=== PATIENT | male | born 1955 | race Caucasian/White ===

== ENCOUNTER 2017-10-28 09:30 | Observation (INO) ==
--- NOTE | 2017-10-28 09:48 | Emergency Department Note ---
ED Disposition Clinical Impression: Colitis, Hyperglycemia Intractable vomiting Qualifiers: Vomiting type: unspecified Nausea presence: with nausea Qualified Code(s): R11.2 - Nausea with vomiting, unspecified Disposition: Still a Patient Condition on Discharge: Fair Referrals: Rudy Bernard MD [Primary Care Provider] - - Critical Care Critical Care Time: No Attestation: On , the high probability of a clinically significant, sudden or life threatening deterioration of the following system(s) required my full and direct attention, intervention and personal management. The time I documented below is in addition to time spent performing reported procedures but includes the following listed in this critical care notation. Medical Decision Making - Darryl Inquiry Pt receiving controlled substance: No Vital Signs: 10/28/17 09:31 10/28/17 11:01 Temperature 97.5 F L Temperature Source Oral Pulse Rate [Right Radial] 88 91 H Respiratory Rate 22 20 Blood Pressure [Right Arm] 163/99 147/85 Blood Pressure Mean [Right Arm] 120 105 Blood Pressure Source [Right Arm] Automatic Cuff Automatic Cuff Blood Pressure Position [Right Arm] Sitting Sitting 02 Sat by Pulse Oximetry 94 L 93 L Oxygen Delivery Method Room Air Room Air - Lab Data Lab Results 10/28/17 09:55: Urine Color Dk yellow, Urine Appearance Sl cloudy, Urine pH 6.0 , Ur Specific [place] >= 1.030, Urine Protein 2+, Urine Glucose (UA) 2+, Urine Ketones 1+, Urine Blood Negative, Urine Nitrate Negative, Urine Bilirubin Negative, Urine Urobilinogen 0.2, Ur Leukocyte Esterase Negative, Urine RBC Occasional, Urine WBC None, Ur Squamous Epith Cells 5-10, Urine Bacteria 1+, Urine Mucus 4+ 10/28/17 09:55: WBC 16.8 H, RBC 5.85, Hgb 16.6, Hct 52.4 H, MCV 89.5, MCH 28.3, MCHC 31.6 L, RDW 13.4, Plt Count 266, MPV 9.0, Neut % (Auto) 84.4 H, Lymph % ( Auto) 10.9, [place] % (Auto) 3.8, Eos % (Auto) 0.7, Baso % (Auto) 0.3, Neut # (Auto ) 14.1 H, Lymph # (Auto) 1.8, [place] # (Auto) 0.6, Eos # (Auto) 0.1, Baso # (Auto ) 0.1, Total Counted 100, Neutrophils % (Manual) 80 H, Lymphocytes % (Manual) 13 , Atypical Lymphs % 2.0, Monocytes % (Manual) 5, Platelet Estimate Normal, RBC Morphology Normal 10/28/17 09:55: Sodium 137, Potassium 3.6, Chloride 103, Carbon Dioxide 26, Anion Gap 11.6, BUN 7, Creatinine 0.96, Estimated Creat Clear 136, Estimated GFR 80, Est GFR ( Amer) 97, Glucose 301 H, Calcium 8.7, Total Bilirubin 0.6, AST 7 L, ALT 17, Alkaline Phosphatase 91, Troponin I < 0.02, Total Protein 7.5, Albumin 3.3 L, Globulin 4.2 H, Albumin/Globulin Ratio 0.8 L, Amylase 32, Lipase 99 10/28/17 09:55: Hemoglobin A1c 10.3 H Patient was noted to have elevated blood sugar in the 300s on prior admission 2014. Hemoglobin A1c was 10. He states that since then his blood sugar has been fine when checked in the office. States he has not diagnosed with diabetes. Result diagrams: 10/28/17 09:55 10/28/17 09:55 Orders (Tests/Meds): ED MEDICATIONS Discontinued Medications Generic Name Dose Route Start Last Admin Trade Name Freq PRN Reason Stop Dose Admin Sodium Chloride 1,000 mls @ 999 mls/hr 10/28/17 09:45 10/28/17 09:49 Sod Chlor 0.9% 1000ml Bag IV 10/28/17 10:45 999 mls/hr .Q1H1M JEN Administration Ondansetron HCl 4 mg 10/28/17 09:47 10/28/17 09:50 Zofran 4mg/2ml Vial IV 10/28/17 09:48 4 mg ONCE ONE Administration Prochlorperazine Edisylate 5 mg 10/28/17 11:18 10/28/17 11:20 Compazine 10mg/2ml Vial IV 10/28/17 11:19 5 mg ONCE ONE Administration Promethazine HCl 12.5 mg 10/28/17 10:13 10/28/17 10:18 Phenergan 25mg/Ml 1ml Vial IV 10/28/17 10:14 12.5 mg ONCE ONE Administration Sodium Chloride 25 ml 10/28/17 10:13 10/28/17 10:18 Sod Chlor 0.9% 25ml Bag IV 10/28/17 10:14 25 ml ONCE ONE Administration ORDERS Category Date Time Status Diarrhea Panel, PCR Stat Lab 10/28/17 09:55 Received - CT Data CT Scan: Abdomen, Pelvis Time Received: 11:[address] Reviewed: Yes: I have viewed the radiologist's interpretation Findings Narrative: Diffuse colitis. Diffuse nature suggests infectious or inflammatory process and argues against ischemia. Pseudomembranous colitis is considered. No pneumatosis or free air. Diverticulosis. Nonobstructing right nephrolithiasis. - ECG Data Tracing #1 EKG interpreted by Prasanna Hernandez MD: Rhythm: sinus Rate: 89 [place]: normal Ectopy: none Conduction: normal ST Segment Changes: none T Wave Changes: none Q Waves: none No evidence of acute ischemia or injury - Physician Consults Physician Consulted: Marco Antonio Time: 11:23 Reason -: Admission Comment/Response: Agrees to admit the patient to the hospital. We discussed the patient's clinical information, including history, exam, laboratory and radiology results and ED course. Per hospital procedure, I will write temporary bridge inpatient orders on the patient. Specific orders requested by the admitting physician: IV fluids, anti-emetics, hold off on antibiotics until diarrhea panel result. - Reevaluation(s) Time: 11:18 Reevaluation #1: Still vomiting after Zofran and Phenergan. General Adult HPI - General Chief complaint: Nausea/Vomiting/Diarrhea Stated complaint: Diarrhea Time Seen by Provider: 10/28/17 09:48 Mode of Arrival: Wheelchair Limitations: No Limitations Description of Symptoms (Recalled from ER Triage Doc. by RN): Patient states he has had diarrhea for four days, starting vomiting last night. States he hasn't ate anything for the four days and that he became weak in the lobby and lowered himself to the ground. Denies falling or hitting his head. - History of Present Illness HPI narrative: 4 day history of diarrhea followed by vomiting. He is not sure whether he has had blood in the diarrhea. He thinks he developed a fever this morning. He has generalized abdominal pain, but states he is more bothered by the severe nausea. He says that he ate at [employer] either the day this started or the prior day. He says the food tasted funny, he thinks that is the cause. No recent travel. - Related Data Home Medications Medication Instructions Recorded Confirmed Amlodipine Besylate [Amlodipine 10 mg PO DAILY 10/28/17 10/28/17 10mg Tab] Losartan Potassium 25 mg PO DAILY 10/28/17 10/28/17 Allergies Allergy/AdvReac Type Severity Reaction Status Date / Time From [facility]AN Allergy Unknown LIGHTHEADED Uncoded 04/05/17 14:08 [facility] History I have reviewed the patient's past medical history: Yes Medical History: Denies:: Diabetes Mellitus Type 2 Laterality Cases: Bilateral: Tonsillectomy - Social History Smoking Status: Current every day smoker Tobacco Type: cigarettes Alcohol Intake: never - Psychiatric History Expresses thoughts of harming self/others: None Suicide Plan Description: No Plan ROS Obtained: Yes All systems reviewed & no additional complaints - Constitutional Constitutional: Reports fever(s) - Cardiovascular Cardiovascular: Denies chest pain - Gastrointestinal Gastrointestingal: Reports: abdominal pain, diarrhea, vomiting Physical Exam - General General appearance: alert Comment: very nauseated - Head Head exam: atraumatic, normocephalic, normal inspection - Eye Eye exam: Present: normal appearance, PERRL, EOMI - ENT ENT exam: Present: normal exam, normal oropharynx, mucous membranes moist, TM's normal bilaterally, normal external ear exam - Neck Neck exam: Present: normal inspection, full ROM, trachea midline. Absent: meningismus, lymphadenopathy - Chest Chest inspection: Present: normal inspection, symmetric chest wall rise. Absent : tenderness - Respiratory Respiratory exam: Present: normal lung sounds bilaterally. Absent: respiratory distress - Cardiovascular Cardiovascular exam: Present: regular rate, normal rhythm. Absent: JVD - Abdominal Exam Abdominal exam: Present: soft, tenderness, normal bowel sounds. Absent: distention, guarding Abdominal tenderness: Present: diffuse, mild - Extremities Exam Extremities exam: Present: normal inspection, full ROM, normal capillary refill. Absent: calf tenderness - Back Exam Back exam: Present: normal inspection. Absent: tenderness - Neurological Exam Neurological exam: Present: alert, oriented X3 - Psychiatric Psychiatric exam: Present: normal affect, normal mood - Skin Skin exam: Present: warm, dry, intact, normal color - Lymphatic Lymphatic Findings: no adenopathy
[2017-10-28 10:06] LABS: Microscopic, Urine URINE MICROSCOPIC (MICROSCOPIC)
[2017-10-28 10:08] LABS: Basophils # 0.1 K/mm3 (0-0.2); Basophils % 0.3 % (0.1-2.0); Eosinophils # 0.1 K/mm3 (0.0-0.4); Eosinophils % 0.7 % (0.1-12.0); Hematocrit 52.4 % (42.0-52.0); Hemoglobin 16.6 g/dL (14.1-18.0); Lymphocytes # 1.8 K/mm3 (0.7-4.5); Lymphocytes % 10.9 K/mm3 (10-50); Mean Corpuscular HGB Conc 31.6 g/dL (31.8-35.4); Mean Corpuscular Hemoglobin 28.3 pg (27.0-31.2); Mean Corpuscular Volume 89.5 fl (80-94); Monocytes # 0.6 K/mm3 (0.1-1.0); Monocytes % 3.8 % (1.7-9.3); Neutrophils # 14.1 K/mm3 (1.8-7.8); Neutrophils % 84.4 % (37.0-80.0); Platelet Count 266 K/mm3 (142-424); Red Blood Count 5.85 M/mm3 (4.60-6.20); Red Cell Distribution Width 13.4 % (11.5-17.5); White Blood Count 16.8 K/mm3 (4.8-10.8)
[2017-10-28 10:16] LABS: Appearance,Urine SL CLOUDY (Clear); Blood, Urine Negative (Negative); Color,Urine DK YELLOW (Yellow); Glucose,Urine (UA) 2+ (Negative); Ketones,Urine 1+ (Negative); Leukocyte Esterase,Urine Negative (Negative); Protein,Urine 2+ (Negative); Specific Gravity, Urine >= 1.030 (1.005-1.030); Urobilinogen,Urine 0.2 EU/dl (0.2)
[2017-10-28 10:22] LABS: Alanine Aminotransferase 17 U/L (12-78); Albumin Level 3.3 gm/dL (3.4-5.0); Albumin/Globulin Ratio 0.8 (1.1-1.8); Alkaline Phosphatase 91 U/L (46-116); Amylase 32 U/L (25-125); Anion Gap 11.6 mEq/L (5-15); Aspartate Amino Transferase 7 U/L (15-37); Bilirubin,Total 0.6 mg/dL (0.2-1.0); Blood Urea Nitrogen 7 mg/dL (7-18); Calcium 8.7 mg/dL (8.5-10.1); Carbon Dioxide 26 mmol/L (21.0-32.0); Chloride 103 mmol/L (98-107); Globulin 4.2 gm/dl (1.3-3.2); Glucose 301 mg/dL (74-106); Lipase 99 u/L (73-393); Potassium 3.6 mmoL/L (3.5-5.1); Sodium 137 mmol/L (136-145); Total Protein,Serum 7.5 gm/dL (6.4-8.2)
[2017-10-28 10:24] LABS: Bilirubin,Urine Negative (Negative)
[2017-10-28 10:27] LABS: Bacteria,Urine 1+ /lpf; Mucus,Urine 4+ /lpf; RBC,Urine Occasional #/hpf (0-3)
[2017-10-28 10:28] LABS: Lymphocytes % 13 % (10-50); Monocytes % 5 % (2-9); Neutrophils % 80 % (42-76); Total Cells Counted 100
[2017-10-28 10:29] LABS: RBC Morphology Normal
--- NOTE | 2017-10-28 12:20 | Pharmacy Consult Notes ---
[facility] VTE Monitoring - Patient Demographics Admission date: 10/28/17 Report Date: 10/28/17 Time: 12:20 Allergies/Adverse Reactions: Patient Allergies From DIOVAN Allergy (Unknown, Uncoded 04/05/17 14:08) LIGHTHEADED Height: 1.83 m Weight: 117.934 kg Patient Problems: Current Active Problems Colitis (Acute) Intractable vomiting (Acute) Hyperglycemia (Acute) - VTE Risk Labs: VTE Related Lab Results Hgb 16.6 g/dL (14.1-18.0) 10/28/17 09:55 Hct 52.4 % (42.0-52.0) H 10/28/17 09:55 Plt Count 266 K/mm3 (142-424) 10/28/17 09:55 BUN 7 mg/dL (7-18) 10/28/17 09:55 Creatinine 0.96 mg/dL (0.70-1.30) 10/28/17 09:55 Estimated Creat Clear 136 mL/min (0-300) 10/28/17 09:55 - Prophylaxis VTE Prophylaxis Ordered?: Yes Types of VTE Prophylaxis: TEDS Knee High Location of Applied Device: Bilateral Lower Extremeties - VTE Diagnosis Confirmed Treatment or plan recommended: Continue Current Treatment
--- NOTE | 2017-10-28 16:28 | History & Physical Report ---
*Admission Date: 10/28/17 *Chief complaint: Vomiting and diarrhea *History of present illness: 62-year-old male with history of hypertension and diabetes presented to the emergency department with a 3 day history of vomiting, diarrhea, abdominal pain that seemed to worsen early this morning. He had developed fevers this morning as well. He reports eating some bad tasting fish at a fast food restaurant and symptoms starting soon after his dining experience. Denies hematemesis, melena , hematochezia. In the emergency department despite being given multiple antiemetics he continued to vomit. Patient has been admitted for observation and stone IV fluids. He finally seemed to respond to some Compazine intravenously [facility] History I have reviewed the patient's past medical history: Yes Medical History: Reports:: Diabetes Mellitus Type 2, Hypertension Denies:: Cancer, MRSA Laterality Cases: Bilateral: Tonsillectomy Amputation: No - *Social History Educational Level: Completed College Smoking Status: Current every day smoker Tobacco Type: cigarettes # Packs/Day (cigarettes): 2 Alcohol Intake: current Alcohol Intake Frequency:: holidays/special occasions only Occupational Status: employed Housing: house Household Members: spouse - Psychiatric History Expresses thoughts of harming self/others: None Suicide Plan Description: No Plan *Family Hx:: Unable to obtain Review of Systems - Review of Systems Review of systems:: pertinent systems reviewed and negative unless documented below See HPI - *Cardiovascular Denies chest pain - *Respiratory Denies shortness of breath Meds Home Medications Medication Instructions Recorded Confirmed Type Amlodipine Besylate [Amlodipine 10 mg PO DAILY 10/28/17 10/28/17 History 10mg Tab] Losartan Potassium 25 mg PO DAILY 10/28/17 10/28/17 History Allergies Allergy/AdvReac Type Severity Reaction Status Date / Time From DIOVAN Allergy Unknown LIGHTHEADED Uncoded 04/05/17 14:08 Exam Vital signs and Labs for Last 24 Hours: Temp Pulse Resp BP Pulse Ox 98.2 F 97 H 18 123/70 96 10/28/17 16:00 10/28/17 16:00 10/28/17 16:00 10/28/17 16:00 10/28/17 16:00 Laboratory Results - last 24 hr 10/28/17 09:55: Urine Color Dk yellow, Urine Appearance Sl cloudy, Urine pH 6.0 , Ur Specific [place] >= 1.030, Urine Protein 2+, Urine Glucose (UA) 2+, Urine Ketones 1+, Urine Blood Negative, Urine Nitrate Negative, Urine Bilirubin Negative, Urine Urobilinogen 0.2, Ur Leukocyte Esterase Negative, Urine RBC Occasional, Urine WBC None, Ur Squamous Epith Cells 5-10, Urine Bacteria 1+, Urine Mucus 4+ 10/28/17 09:55: WBC 16.8 H, RBC 5.85, Hgb 16.6, Hct 52.4 H, MCV 89.5, MCH 28.3, MCHC 31.6 L, RDW 13.4, Plt Count 266, MPV 9.0, Neut % (Auto) 84.4 H, Lymph % ( Auto) 10.9, [place] % (Auto) 3.8, Eos % (Auto) 0.7, Baso % (Auto) 0.3, Neut # (Auto ) 14.1 H, Lymph # (Auto) 1.8, [place] # (Auto) 0.6, Eos # (Auto) 0.1, Baso # (Auto ) 0.1, Total Counted 100, Neutrophils % (Manual) 80 H, Lymphocytes % (Manual) 13 , Atypical Lymphs % 2.0, Monocytes % (Manual) 5, Platelet Estimate Normal, RBC Morphology Normal 10/28/17 09:55: Sodium 137, Potassium 3.6, Chloride 103, Carbon Dioxide 26, Anion Gap 11.6, BUN 7, Creatinine 0.96, Estimated Creat Clear 136, Estimated GFR 80, Est GFR ( Amer) 97, Glucose 301 H, Calcium 8.7, Total Bilirubin 0.6, AST 7 L, ALT 17, Alkaline Phosphatase 91, Troponin I < 0.02, Total Protein 7.5, Albumin 3.3 L, Globulin 4.2 H, Albumin/Globulin Ratio 0.8 L, Amylase 32, Lipase 99 10/28/17 09:55: Stl Aeromonas (PCR) Not detected, Stl C. cayetanensis PCR Not detected, Stool Rotavirus (PCR) Not detected, Stl Adenov F 40/41 PCR Not detected, Stool Astrovirus (PCR) Not detected, Stool Campylobacter PCR Not detected, Stl C.difficile Tox PCR Not detected, Stool Cryptosporidium PCR Not detected, Stl E.coli Shiga Tox PCR Detected A, Stool E coli O157 PCR Not detected, Stl Enterotoxigenic E PCR Not detected, Stool EPEC (PCR) Not detected , Stool EAEC (PCR) Not detected, Stl E. histolytica PCR Not detected, Stool Giardia Lamblia PCR Not detected, Stool Salmonella PCR Not detected, Stool Sapovirus (PCR) Not detected, Stl P. shigelloides PCR Not detected, Stl Shigella /EIEC PCR Not detected, St Y.enterocolitica PCR Not detected, Stool Vibrio (PCR ) Not detected, Stl Vibrio cholerae PCR Not detected, Stl Norovirus GI/GII PCR Not detected 10/28/17 09:55: Hemoglobin A1c 10.3 H I & O for Last 24 hours: Intake & Output 10/26/17 10/27/17 10/28/17 10/29/17 11:59 11:59 11:59 11:59 Weight 265 lb 6.985 oz 260 lb Narrative: He awakens easily. He is oriented to person place and time. ENT exam is grossly normal. Neck is without any lymphadenopathy. Lungs are clear to auscultation. Heart has a regular rate and rhythm. Abdomen is soft, nontender with active bowel sounds. Patient can move all of his extremities and there is no gross neurologic deficit. H&P: Result - Labs Labs: Short CBC 10/28/17 Range/Units 09:55 WBC 16.8 H (4.8-10.8) K/mm3 Hgb 16.6 (14.1-18.0) g/dL Hct 52.4 H (42.0-52.0) % Plt Count 266 (142-424) K/mm3 BMP 10/28/17 09:55 Sodium 137 Potassium 3.6 Chloride 103 Carbon Dioxide 26 BUN 7 Creatinine 0.96 Glucose 301 H Calcium 8.7 Cardiac Enzymes 10/28/17 Range/Units 09:55 Troponin I < 0.02 (0.00-0.06) ng/ml Liver Function 10/28/17 Range/Units 09:55 Total Bilirubin 0.6 (0.2-1.0) mg/dL AST 7 L (15-37) U/L ALT 17 (12-78) U/L Alkaline Phosphatase 91 (46-116) U/L Albumin 3.3 L (3.4-5.0) gm/dL Urine 10/28/17 Range/Units 09:55 Urine Color Dk yellow (Yellow) Urine Appearance Sl cloudy (Clear) Urine pH 6.0 (5.0-8.5) Ur Specific [place] >= 1.030 (1.005-1.030) Urine Protein 2+ (Negative) Urine Glucose (UA) 2+ (Negative) Assessment and Plan (1) Infectious colitis, enteritis and gastroenteritis Current visit: Yes Status: Acute Category: Medical Code(s): A09 - Infectious gastroenteritis and colitis, unspecified (2) Type 2 diabetes mellitus, uncontrolled Current visit: Yes Status: Chronic Qualifiers: Diabetes mellitus terminal gauger insulin use: without terminal gauger use Diabetes mellitus complication status: without complication Qualified Code(s): E11.65 - Type 2 diabetes mellitus with hyperglycemia Category: Medical Code(s): E11.65 - Type 2 diabetes mellitus with hyperglycemia (3) Intractable vomiting Current visit: Yes Status: Acute Qualifiers: Vomiting type: unspecified Nausea presence: with nausea Qualified Code(s) : R11.2 - Nausea with vomiting, unspecified Category: Medical Code(s): R11.10 - Vomiting, unspecified - Assessment and plan all Dx Assessment and Plan for all problems:: 1. IV fluids and antiemetics 2. Repeat CBC and BMP in a.m. 3. Patient may begin clear liquids when ready
[2017-10-29 06:41] LABS: Basophils # 0.1 K/mm3 (0-0.2); Basophils % 0.3 % (0.1-2.0); Eosinophils # 0.2 K/mm3 (0.0-0.4); Eosinophils % 1.1 % (0.1-12.0); Hematocrit 48.4 % (42.0-52.0); Hemoglobin 15.8 g/dL (14.1-18.0); Lymphocytes # 3.5 K/mm3 (0.7-4.5); Lymphocytes % 18.6 K/mm3 (10-50); Mean Corpuscular HGB Conc 32.6 g/dL (31.8-35.4); Mean Corpuscular Hemoglobin 28.9 pg (27.0-31.2); Mean Corpuscular Volume 88.8 fl (80-94); Monocytes # 0.8 K/mm3 (0.1-1.0); Monocytes % 4.5 % (1.7-9.3); Neutrophils # 14.1 K/mm3 (1.8-7.8); Neutrophils % 75.5 % (37.0-80.0); Platelet Count 262 K/mm3 (142-424); Red Blood Count 5.44 M/mm3 (4.60-6.20); Red Cell Distribution Width 13.5 % (11.5-17.5); White Blood Count 18.6 K/mm3 (4.8-10.8)
[2017-10-29 06:46] LABS: Anion Gap 9.4 mEq/L (5-15); Calcium 8.5 mg/dL (8.5-10.1); Potassium 3.4 mmoL/L (3.5-5.1)
--- NOTE | 2017-10-29 07:42 | Discharge Summary ---
General - General Admission date:: 10/28/17 Discharge date: 10/29/17 HPI HPI: 62-year-old male with history of hypertension and diabetes presented to the emergency department with a 3 day history of vomiting, diarrhea, abdominal pain that seemed to worsen early this morning. He had developed fevers this morning as well. He reports eating some bad tasting fish at a fast food restaurant and symptoms starting soon after his dining experience. Denies hematemesis, melena , hematochezia. In the emergency department despite being given multiple antiemetics he continued to vomit. Patient has been admitted for observation and stone IV fluids. He finally seemed to respond to some Compazine intravenously Hospital Course Hospital Course: Patient was admitted for observation due to intractable vomiting. Ultimately his vomiting seemed to respond best to Compazine. Patient was continued on IV fluids overnight. He was also started on clear liquids. He had no further vomiting. He did have episodes of diarrhea. Diarrhea PCR panel was positive for E. coli. Patient's white count was mildly elevated. Following morning patient was no longer vomiting and was keeping down fluids. He was discharged home. Patient was started on a probiotic for the diarrhea. He was also started on glipizide for his diabetes. He plans on following a high fat low carbohydrate diet. Patient was given Compazine for nausea. Patient will follow -up in my office on November 04 Objective Vital signs: Temp Pulse Resp BP Pulse Ox 97.9 F 87 22 142/87 94 L 10/29/17 04:32 10/29/17 04:32 10/29/17 04:32 10/29/17 04:32 10/29/17 04:32 Results Labs on day of discharge: Labs from last 24 hours 10/29/17 10/29/17 10/29/17 06:07 06:07 06:01 WBC 18.6 H RBC 5.44 Hgb 15.8 Hct 48.4 MCV 88.8 MCH 28.9 MCHC 32.6 RDW 13.5 Plt Count 262 MPV 9.0 Neut % (Auto) 75.5 Lymph % (Auto) 18.6 Faulk % (Auto) 4.5 Eos % (Auto) 1.1 Baso % (Auto) 0.3 Neut # (Auto) 14.1 H Lymph # (Auto) 3.5 Faulk # (Auto) 0.8 Eos # (Auto) 0.2 Baso # (Auto) 0.1 Total Counted Neutrophils % (Manual) Lymphocytes % (Manual) Atypical Lymphs % Monocytes % (Manual) Platelet Estimate RBC Morphology Sodium 140 Potassium 3.4 L Chloride 107 Carbon Dioxide 27 Anion Gap 9.4 BUN 8 Creatinine 0.74 D Estimated Creat Clear 177 Estimated GFR 108 Est GFR ( Amer) 131 D Glucose 165 H D POC Glucose 160 H Hemoglobin A1c Calcium 8.5 Total Bilirubin AST ALT Alkaline Phosphatase Troponin I Total Protein Albumin Globulin Albumin/Globulin Ratio Amylase Lipase Urine Color Urine Appearance Urine pH Ur Specific Wittmann Urine Protein Urine Glucose (UA) Urine Ketones Urine Blood Urine Nitrate Urine Bilirubin Urine Urobilinogen Ur Leukocyte Esterase Urine RBC Urine WBC Ur Squamous Epith Cells Urine Bacteria Urine Mucus Stl Aeromonas (PCR) Stl C. cayetanensis PCR Stool Rotavirus (PCR) Stl Adenov F 40/41 PCR Stool Astrovirus (PCR) Stool Campylobacter PCR Stl C.difficile Tox PCR Stool Cryptosporidium PCR Stl E.coli Shiga Tox PCR Stool E coli O157 PCR Stl Enterotoxigenic E PCR Stool EPEC (PCR) Stool EAEC (PCR) Stl E. histolytica PCR Stool Giardia Lamblia PCR Stool Salmonella PCR Stool Sapovirus (PCR) Stl P. shigelloides PCR Stl Shigella/EIEC PCR St Y.enterocolitica PCR Stool Vibrio (PCR) Stl Vibrio cholerae PCR Stl Norovirus GI/GII PCR 10/28/17 10/28/17 10/28/17 20:34 16:40 09:55 WBC RBC Hgb Hct MCV MCH MCHC RDW Plt Count MPV Neut % (Auto) Lymph % (Auto) Faulk % (Auto) Eos % (Auto) Baso % (Auto) Neut # (Auto) Lymph # (Auto) Faulk # (Auto) Eos # (Auto) Baso # (Auto) Total Counted Neutrophils % (Manual) Lymphocytes % (Manual) Atypical Lymphs % Monocytes % (Manual) Platelet Estimate RBC Morphology Sodium Potassium Chloride Carbon Dioxide Anion Gap BUN Creatinine Estimated Creat Clear Estimated GFR Est GFR ( Amer) Glucose POC Glucose 254 H 328 H* Hemoglobin A1c 10.3 H Calcium Total Bilirubin AST ALT Alkaline Phosphatase Troponin I Total Protein Albumin Globulin Albumin/Globulin Ratio Amylase Lipase Urine Color Urine Appearance Urine pH Ur Specific Wittmann Urine Protein Urine Glucose (UA) Urine Ketones Urine Blood Urine Nitrate Urine Bilirubin Urine Urobilinogen Ur Leukocyte Esterase Urine RBC Urine WBC Ur Squamous Epith Cells Urine Bacteria Urine Mucus Stl Aeromonas (PCR) Stl C. cayetanensis PCR Stool Rotavirus (PCR) Stl Adenov F PCR Stool Astrovirus (PCR) Stool Campylobacter PCR Stl C.difficile Tox PCR Stool Cryptosporidium PCR Stl E.coli Shiga Tox PCR Stool E coli O157 PCR Stl Enterotoxigenic E PCR Stool EPEC (PCR) Stool EAEC (PCR) Stl E. histolytica PCR Stool Giardia Lamblia PCR Stool Salmonella PCR Stool Sapovirus (PCR) Stl P. shigelloides PCR Stl Shigella/EIEC PCR St Y.enterocolitica PCR Stool Vibrio (PCR) Stl Vibrio cholerae PCR Stl Norovirus GI/GII PCR 10/28/17 10/28/17 10/28/17 09:55 09:55 09:55 WBC 16.8 H RBC 5.85 Hgb 16.6 Hct 52.4 H MCV 89.5 MCH 28.3 MCHC 31.6 L RDW 13.4 Plt Count 266 MPV 9.0 Neut % (Auto) 84.4 H Lymph % (Auto) 10.9 Faulk % (Auto) 3.8 Eos % (Auto) 0.7 Baso % (Auto) 0.3 Neut # (Auto) 14.1 H Lymph # (Auto) 1.8 Faulk # (Auto) 0.6 Eos # (Auto) 0.1 Baso # (Auto) 0.1 Total Counted 100 Neutrophils % (Manual) 80 H Lymphocytes % (Manual) 13 Atypical Lymphs % 2.0 Monocytes % (Manual) 5 Platelet Estimate Normal RBC Morphology Normal Sodium 137 Potassium 3.6 Chloride 103 Carbon Dioxide 26 Anion Gap 11.6 BUN 7 Creatinine 0.96 Estimated Creat Clear 136 Estimated GFR 80 Est GFR ( Amer) 97 Glucose 301 H POC Glucose Hemoglobin A1c Calcium 8.7 Total Bilirubin 0.6 AST 7 L ALT 17 Alkaline Phosphatase 91 Troponin I < 0.02 Total Protein 7.5 Albumin 3.3 L Globulin 4.2 H Albumin/Globulin Ratio 0.8 L Amylase 32 Lipase 99 Urine Color Urine Appearance Urine pH Ur Specific Wittmann Urine Protein Urine Glucose (UA) Urine Ketones Urine Blood Urine Nitrate Urine Bilirubin Urine Urobilinogen Ur Leukocyte Esterase Urine RBC Urine WBC Ur Squamous Epith Cells Urine Bacteria Urine Mucus Stl Aeromonas (PCR) Not detected Stl C. cayetanensis PCR Not detected Stool Rotavirus (PCR) Not detected Stl Adenov F 40/ PCR Not detected Stool Astrovirus (PCR) Not detected Stool Campylobacter PCR Not detected Stl C.difficile Tox PCR Not detected Stool Cryptosporidium PCR Not detected Stl E.coli Shiga Tox PCR Detected A Stool E coli O157 PCR Not detected Stl Enterotoxigenic E PCR Not detected Stool EPEC (PCR) Not detected Stool EAEC (PCR) Not detected Stl E. histolytica PCR Not detected Stool Giardia Lamblia PCR Not detected Stool Salmonella PCR Not detected Stool Sapovirus (PCR) Not detected Stl P. shigelloides PCR Not detected Stl Shigella/EIEC PCR Not detected St Y.enterocolitica PCR Not detected Stool Vibrio (PCR) Not detected Stl Vibrio cholerae PCR Not detected Stl Norovirus GI/GII PCR Not detected 10/28/17 09:55 WBC RBC Hgb Hct MCV MCH MCHC RDW Plt Count MPV Neut % (Auto) Lymph % (Auto) Faulk % (Auto) Eos % (Auto) Baso % (Auto) Neut # (Auto) Lymph # (Auto) Faulk # (Auto) Eos # (Auto) Baso # (Auto) Total Counted Neutrophils % (Manual) Lymphocytes % (Manual) Atypical Lymphs % Monocytes % (Manual) Platelet Estimate RBC Morphology Sodium Potassium Chloride Carbon Dioxide Anion Gap BUN Creatinine Estimated Creat Clear Estimated GFR Est GFR ( Amer) Glucose POC Glucose Hemoglobin A1c Calcium Total Bilirubin AST ALT Alkaline Phosphatase Troponin I Total Protein Albumin Globulin Albumin/Globulin Ratio Amylase Lipase Urine Color Dk yellow Urine Appearance Sl cloudy Urine pH 6.0 Ur Specific Wittmann >= 1.030 Urine Protein 2+ Urine Glucose (UA) 2+ Urine Ketones 1+ Urine Blood Negative Urine Nitrate Negative Urine Bilirubin Negative Urine Urobilinogen 0.2 Ur Leukocyte Esterase Negative Urine RBC Occasional Urine WBC None Ur Squamous Epith Cells 5-10 Urine Bacteria 1+ Urine Mucus 4+ Stl Aeromonas (PCR) Stl C. cayetanensis PCR Stool Rotavirus (PCR) Stl Adenov F 40/41 PCR Stool Astrovirus (PCR) Stool Campylobacter PCR Stl C.difficile Tox PCR Stool Cryptosporidium PCR Stl E.coli Shiga Tox PCR Stool E coli O157 PCR Stl Enterotoxigenic E PCR Stool EPEC (PCR) Stool EAEC (PCR) Stl E. histolytica PCR Stool Giardia Lamblia PCR Stool Salmonella PCR Stool Sapovirus (PCR) Stl P. shigelloides PCR Stl Shigella/EIEC PCR St Y.enterocolitica PCR Stool Vibrio (PCR) Stl Vibrio cholerae PCR Stl Norovirus GI/GII PCR DS: Diagnosis - Discharge Diagnosis (1) Infectious colitis, enteritis and gastroenteritis Status: Acute (2) Type 2 diabetes mellitus, uncontrolled Status: Chronic (3) Intractable vomiting Status: Acute Discharge Plan - Patient Discharge Instructions ACTIVITY: Continue current activity DIET: continue same diet - Follow up Plan Follow up with: Rudy Bernard MD [Primary Care Provider] - 11/04/17 11:00 am Disposition: Home, Self-Nursing Home Medications: Home Medications Medication Instructions Recorded Confirmed Type Amlodipine Besylate [Amlodipine 10 mg PO DAILY 10/28/17 10/28/17 History 10mg Tab] Losartan Potassium 25 mg PO DAILY 10/28/17 10/28/17 History Prescriptions/Medication Reconciliation: New Lactobacillus Acidophilus [Acidophilus] 1 each PO AC #30 cap Prochlorperazine Maleate [Compazine 10mg tablet] 10 mg PO Q6HP PRN #30 tab PRN Reason: Nausea glipiZIDE [Glucotrol] 5 mg PO BID #60 tab Continue Losartan Potassium 25 mg PO DAILY Amlodipine Besylate [Amlodipine 10mg Tab] 10 mg PO DAILY
[2017-10-29 08:10] VITALS: BP 132/72
[2017-10-29 08:29] LABS: Eosinophils % 1 % (0-3); Lymphocytes % 28 % (10-50); Monocytes % 3 % (2-9); Neutrophils % 68 % (42-76); RBC Morphology Normal; Total Cells Counted 100
== END 2017-10-29 08:20 | disposition home or self-care (01) ==
LOC: ER 09:30 → 2ND 11:30 → INTOOBSV 11:30 → 2ND 12:27
PROVIDERS: ADMIT Family Medicine; ATTEND Family Medicine